=== PATIENT | female | born 1980 | race Caucasian/White ===

== ENCOUNTER 2020-12-06 13:42 | Inpatient (IN) | payer OTHER ==
[~2020-12-06] VITALS: Ht 172.7 cm; Wt 87.1 kg
[2020-12-06 16:00] VITALS: BP 130/80; BP 132/104
[2020-12-06 16:02] LABS: BASO # 0.1 10*3/uL (0.0-0.1); BASO % 0.7 % (0.0-1.0); EOS # 0.1 10*3/uL (0.0-0.4); EOS % 1.8 % (1.0-4.0); HEMATOCRIT 43.8 % (37.0-47.0); LYMPH % 28.4 % (27.0-41.0); MEAN CELL VOLUME 86.2 fl (81.0-99.0); MEAN CORPUSCULAR HGB 28.9 pg (27.0-31.0); MEAN CORPUSCULAR HGB CONC 33.6 g/dl (33.0-37.0); MEAN PLATELET VOLUME 10.6 fl (9.6-12.3); MONO # 0.5 10*3/uL (0.1-1.0); MONO % 6.5 % (3.0-9.0); NEUT # 4.4 10*3/uL (2.3-7.9); NEUT % 62.2 % (47.0-73.0); PLATELET COUNT AUTOMATED 172 10*3/uL (130-400); RED BLOOD COUNT 5.08 10*6/uL (4.10-5.10); RED CELL DISTRI WIDTH 12.2 % (0-14.5); WHITE BLOOD COUNT 7.1 10*3/uL (4.8-10.8)
[2020-12-06 16:14] LABS: ALBUMIN 3.4 gm/dl (3.1-4.5); ALKALINE PHOSPHATASE 114 U/L (45-117); BUN 14 mg/dl (7-24); CHLORIDE 105 mmol/L (98-107); CREATININE 0.74 mg/dL (0.55-1.02); SGOT/AST 116 IU/L (3-35); SGPT/ALT 134 U/L (12-78); SODIUM 138 mmol/L (136-145)
[2020-12-06 16:16] LABS: ETHYL ALCOHOL < 3.0 mg/dl (<3)
[2020-12-06 16:18] LABS: BETA-HCG, QUANT < 1.0 mIU/mL (1-3)
[2020-12-06 17:55] LABS: BILIRUBIN Negative (Negative); BLOOD Negative (Negative); CLARITY Clear (Clear); COLOR Yellow (Yellow); GLUCOSE Negative (Negative); KETONE Negative (Negative); LEUKO ESTERASE Negative (Negative); NITRITE Negative (Negative); PH 6.5 (4.5-8.0); UROBILINOGEN 0.2 E.U./dl (0.0-1.0)
[2020-12-06 18:03] LABS: BACTERIA TRACE; RBC 0-2 rbc/hpf (0-2); URINE AMPHETAMINES < 1000 (1000ng/ml); URINE BARBITURATES < 200 (200ng/ml); URINE BENZODIAZEPINES < 200 (200ng/ml); URINE CANNABINOIDS (THC) > 50 (50ng/ml); URINE COCAINE > 300 (300ng/ml); URINE METHADONE < 300 (300ng/ml); URINE OPIATES < 300 (300ng/ml); WBC 0-2 wbc/hpf (0-5)
[2020-12-06 18:04] LABS: URINE PHENCYCLIDINE < 25 (25ng/ml)
[2020-12-07 12:00] VITALS: BP 122/49; BP 136/75
[2020-12-07 20:00] VITALS: BP 131/67
[2020-12-08 01:11] VITALS: BP 134/76
[2020-12-08 08:00] VITALS: BP 128/86
[2020-12-08] MEDS ORDERED: DICYCLOMINE HCL20 MG PO (09:03)
[2020-12-08] MEDS ORDERED: NATURE'S BLEND F1 MG PO (09:03)
[2020-12-08] MEDS ORDERED: ATARAX,VISTARIL50 MG PO (09:03)
[2020-12-08] MEDS ORDERED: VITAMIN B-1100 M1 PO (09:03)
[2020-12-08] MEDS ORDERED: METHOCARBAMOL750 M1 PO (09:03)
[2020-12-08] MEDS ORDERED: THERA TABLET400 MCG PO (09:03)
[2020-12-08] MEDS ORDERED: MOTRIN 600 MG E4 TAB PO (09:03)
== END 2020-12-08 10:35 | disposition home or self-care (01) | DRG 773 ==
LOC: 5E 13:42
PROVIDERS: Internal Medicine; ADMIT Internal Medicine; ATTEND Internal Medicine
DX: F11.23 Opioid dependence with withdrawal (principal); F17.210 Nicotine dependence, cigarettes, uncomplicated; F14.10 Cocaine abuse, uncomplicated; J45.909 Unspecified asthma, uncomplicated; G25.81 Restless legs syndrome; F31.9 Bipolar disorder, unspecified; Z71.6 Tobacco abuse counseling; Z82.49 Family history of ischemic heart disease and other diseases of the circulatory system